=== PATIENT | male | born 1965 | race Caucasian/White ===

== ENCOUNTER → 2018-11-05 10:21 | Outpatient (CLI) | payer MEDICARE, SELFPAY ==
--- NOTE | 2018-11-05 10:29 | XR_ITS ---
EXAM: XR cervical spine 5V HISTORY: ITS.REASON: NECK PAIN ORDERING PHYSICIAN: Nancy Barrios MD PATIENT AGE: 53 years COMPARISON: None FINDINGS: There is slight reversal of the cervical lordosis. Degenerative disc disease is present at C5-C6 and C6-C7. Foraminal narrowing is noted on the right at C3-C4 and C5-C6 and on the left at C4-C5 and C5-C6. There are facet arthritic/hypertrophic changes from C3 to C7. No lytic or blastic change. No cervical rib. IMPRESSION: Cervical spondylosis with degenerative disc disease and facet arthritic change with foraminal narrowing as detailed above
--- NOTE | 2018-11-05 10:29 | XR_ITS ---
EXAM: XR lumbar spine min 4V HISTORY: ITS.REASON: LUMBAGO W/SCIATICA,CHRONIC PAIN ORDERING PHYSICIAN: Nancy Barrios MD PATIENT AGE: 53 years COMPARISON: None FINDINGS: There is minimal lumbar curvature convex right. Degenerative disc disease is present at L4-L5 and to a greater degree at L5-S1. There are facet arthritic changes at L5-S1. No fracture or dislocation. No lytic or blastic change. IMPRESSION: Lumbar spondylosis with degenerative disc disease at L4-L5 and facet arthritic change at L5-S1
== END ==
PROVIDERS: PCP Emergency Medicine; Visit Provider Emergency Medicine
DX: M54.41 Lumbago with sciatica, right side (principal); M54.42 Lumbago with sciatica, left side; G89.29 Other chronic pain
CPT/HCPCS: 72050; 72110

== ENCOUNTER → 2019-02-02 17:36 | Outpatient (CLI) | payer MEDICARE, SELFPAY ==
[2019-02-02 18:14] LABS: Basophils % 0.9 % (0.1-2.0); Eosinophils # 0.1 K/mm3 (0.0-0.4); Eosinophils % 2.6 % (0.1-12.0); Hematocrit 45.2 % (42.0-52.0); Hemoglobin 15.5 g/dL (14.1-18.0); Lymphocytes # 2.1 K/mm3 (0.7-4.5); Lymphocytes % 39.3 % (10-50); Mean Corpuscular HGB Conc 34.3 g/dL (31.8-35.4); Mean Corpuscular Hemoglobin 30.2 pg (27.0-31.2); Mean Corpuscular Volume 88.3 fl (80-94); Mean Platelet Volume 8.4 fl (7.4-10.4); Monocytes # 0.3 K/mm3 (0.1-1.0); Monocytes % 5.8 % (1.7-9.3); Neutrophils # 2.7 K/mm3 (1.8-7.8); Neutrophils % 51.4 % (37.0-80.0); Platelet Count 203 K/mm3 (142-424); Red Blood Count 5.12 M/mm3 (4.60-6.20); Red Cell Distribution Width 13.2 % (11.5-17.5); White Blood Count 5.2 K/mm3 (4.8-10.8)
[2019-02-02 18:18] LABS: Alanine Aminotransferase 24 U/L (12-78); Albumin Level 4.4 gm/dL (3.4-5.0); Albumin/Globulin Ratio 1.4 (1.1-1.8); Alkaline Phosphatase 61 U/L (46-116); Aspartate Amino Transferase 15 U/L (15-37); Bilirubin,Total 0.4 mg/dL (0.2-1.0); Blood Urea Nitrogen 13 mg/dL (7-18); Calcium 9.2 mg/dL (8.5-10.1); Carbon Dioxide 26 mmol/L (21.0-32.0); Chloride 103 mmol/L (98-107); Chol/HDL Ratio 6.1 (1-3.5); Cholesterol 273 mg/dL (140-200); Creatinine,Serum 0.98 mg/dL (0.70-1.30); Estimated Glomerular Filt Rate 79 ml/min (>60); GFR (African American) 96 ML/MIN (>60); Globulin 3.2 gm/dl (1.3-3.2); Glucose 96 mg/dL (74-106); HDL Cholesterol 45 mg/dL (27-67); LDL Cholesterol 194 mg/dL (0-130); Sodium 138 mmol/L (136-145); Thyroid Stimulating Hormone 1.13 uIU/ml (0.358-3.740); Total Protein,Serum 7.6 gm/dL (6.4-8.2); Triglycerides 172 mg/dL (30-200); VLDL Cholesterol 34 mg/dL (0-40)
== END ==
PROVIDERS: Visit Provider Physician Assistant
DX: R53.83 Other fatigue (principal); I25.10 Atherosclerotic heart disease of native coronary artery without angina pectoris
CPT/HCPCS: 80053; 80061; 82652; 84436; 84443; 85025

== ENCOUNTER → 2019-05-06 14:32 | Outpatient (CLI) | payer MEDICARE, SELFPAY ==
[2019-05-06 15:19] LABS: Monoscreen (Rapid) Negative (Negative)
[2019-05-06 16:10] LABS: Basophils # 0.1 K/mm3 (0-0.2); Basophils % 1.1 % (0.1-2.0); Eosinophils # 0.2 K/mm3 (0.0-0.4); Hematocrit 47.5 % (42.0-52.0); Hemoglobin 15.7 g/dL (14.1-18.0); Lymphocytes % 33.8 % (10-50); Mean Corpuscular HGB Conc 33.1 g/dL (31.8-35.4); Mean Corpuscular Hemoglobin 29.9 pg (27.0-31.2); Mean Corpuscular Volume 90.5 fl (80-94); Mean Platelet Volume 9.3 fl (7.4-10.4); Monocytes # 0.4 K/mm3 (0.1-1.0); Monocytes % 6.8 % (1.7-9.3); Neutrophils # 3.2 K/mm3 (1.8-7.8); Neutrophils % 55.4 % (37.0-80.0); Platelet Count 194 K/mm3 (142-424); Red Blood Count 5.25 M/mm3 (4.60-6.20); Red Cell Distribution Width 13.2 % (11.5-17.5); White Blood Count 5.8 K/mm3 (4.8-10.8)
[2019-05-06 16:41] LABS: Alanine Aminotransferase 29 U/L (12-78); Albumin Level 4.1 gm/dL (3.4-5.0); Albumin/Globulin Ratio 1.3 (1.1-1.8); Alkaline Phosphatase 67 U/L (46-116); Aspartate Amino Transferase 14 U/L (15-37); Bilirubin,Total 0.4 mg/dL (0.2-1.0); Blood Urea Nitrogen 9 mg/dL (7-18); Calcium 8.6 mg/dL (8.5-10.1); Carbon Dioxide 24 mmol/L (21.0-32.0); Chloride 103 mmol/L (98-107); Chol/HDL Ratio 4.6 (1-3.5); Cholesterol 222 mg/dL (140-200); Creatinine,Serum 0.87 mg/dL (0.70-1.30); Estimated Glomerular Filt Rate 91 ml/min (>60); GFR (African American) 110 ML/MIN (>60); Globulin 3.2 gm/dl (1.3-3.2); Glucose 91 mg/dL (74-106); HDL Cholesterol 48 mg/dL (27-67); LDL Cholesterol 141 mg/dL (0-130); Sodium 140 mmol/L (136-145); T4 (Thyroxine) 10.7 ug/dl (4.7-13.3); Thyroid Stimulating Hormone 1.47 uIU/ml (0.358-3.740); Total Protein,Serum 7.3 gm/dL (6.4-8.2); Triglycerides 163 mg/dL (30-200); VLDL Cholesterol 33 mg/dL (0-40)
== END ==
PROVIDERS: Visit Provider Physician Assistant
DX: R53.83 Other fatigue (principal); E78.5 Hyperlipidemia, unspecified
CPT/HCPCS: 80053; 80061; 84436; 84443; 85025; 86318

== ENCOUNTER → 2019-05-18 12:51 | Outpatient (CLI) | payer MEDICARE, SELFPAY ==
--- NOTE | 2019-05-18 12:52 | MR_ITS ---
PROCEDURE: MR CERVICAL SPINE WO CON CLINICAL INDICATION: Chronic neck pain COMPARISON: No exams were available for comparison TECHNIQUE: Standard multiplanar multiecho sequences are performed without contrast. 3-D MIP and myelographic images are also rendered and reviewed FINDINGS: Alignment, vertebral body heights and signal from the osseous marrow elements are normal. There is moderate loss of disc space height at C5-6 and C6-7. Foramen magnum and the C1-2 level and C2-3 appear normal. C3-4 shows diffuse bulge/spur with mild ventral cord deformity. Vertebral canal AP diameter is 9.1 centimeters. There is right facet and uncovertebral joint hypertrophy with moderate to severe foraminal stenosis. C4-5 shows no bulge or herniation. Foraminal areas are patent. C5-6 shows bulge/posterior spur greater towards the left side with mild ventral cord deformity. Canal AP diameter is 9.1 millimeters. There is uncovertebral joint hypertrophy causing foraminal encroachment bilaterally, mild on the right and moderate to severe on the left. C6-7 shows diffuse bulge/spur with minimal ventral cord deformity. Canal AP diameter is 8.4 millimeters. There is uncovertebral joint hypertrophy causing moderate bilateral foraminal stenosis. C7-T1 level shows diffuse mild bulge/spur without cord deformity. There is facet and uncovertebral joint hypertrophy causing moderate to severe bilateral foraminal stenosis. Spinal cord is of normal signal. Visualized paraspinal structures are unremarkable. IMPRESSION: Multiple levels of degenerative disc disease with bulges/posterior spurs with areas of generally mild acquired central canal stenosis at C3 through C7 levels discussed above in the bulge is slightly more prominent at C6-7. Multiple levels of foraminal spondylosis discussed above, appears to be more prominent on the right at C3-4 and bilaterally at C5-6, C6-7 and C7-T1. To better evaluate for osseous foraminal stenosis suggest five view cervical spine plain film exam. Dictated by: Rohit Mares 05/18/2019 16:53 Electronically signed by Rohit Mares in [facility] 05/18/2019 16:53
--- NOTE | 2019-05-18 12:52 | MR_ITS ---
PROCEDURE: MR LUMBAR SPINE WO CON CLINICAL INDICATION: Chronic back pain COMPARISON: No exams were available for comparison TECHNIQUE: Standard multiplanar multiecho sequences are performed without contrast. 3-D MIP and myelographic images are also rendered and reviewed FINDINGS: Alignment, vertebral body heights and signal from the osseous marrow elements are normal. There is moderate loss of disc space height at multiple lower thoracic levels and severe loss of disc space height at L5-S1. T11-12 shows mild bulge greater towards the right with borderline mild right ventral cord deformity however there is subarachnoid space between the cord and the bulge. There is right facet hypertrophy. T12-L1 shows minimal bulge without mass effect. Foraminal areas appear normal. L1-2 shows mild bulge without mass effect. Foraminal areas are normal. L2-3 shows mild bulge without mass effect and foraminal areas are normal. L3-4 shows mild bulge without mass effect. Foraminal areas are normal. L4-5 shows minimal bulge greater towards the left with mild left ventral thecal sac deformity without central stenosis. There is mild encroachment upon the left foramina without foraminal nerve root mass effect. L5-S1 shows minimal bulge without mass effect. There is moderate right facet hypertrophy there is [id number] bilateral foraminal stenosis and the hypertrophic facet is adjacent to the left L5 nerve root in the foramina. Multiple levels of facet arthrosis which is fairly mild although somewhat greater on the right at L5-S1. Conus and cauda equina structures and paraspinal structures are normal. IMPRESSION: Multiple levels of chronic intervertebral osteochondrosis with mild bulges at multiple levels however there is no acquired central canal stenosis or focal disc herniation. Areas of foraminal stenosis primarily from the mild bulge and facet arthrosis however there is no definite foraminal nerve root deformity except there could be some subtle mass effect upon the left L5 nerve root in the foramina. Correlate with distribution symptoms. Dictated by: Rohit Mares 05/18/2019 17:03 Electronically signed by Rohit Mares in [facility] 05/18/2019 17:03
== END ==
PROVIDERS: PCP Physician Assistant; Visit Provider Physician Assistant
DX: G89.29 Other chronic pain (principal); M54.2 Cervicalgia; M54.9 Dorsalgia, unspecified
CPT/HCPCS: 72141; 72148; 76376

== ENCOUNTER → 2019-06-26 14:49 | Outpatient (CLI) | payer MEDICARE, SELFPAY ==
--- NOTE | 2019-06-26 14:50 | MR_ITS ---
PROCEDURE: MR THORACIC SPINE WO CON CLINICAL INDICATION: Thoracic back pain COMPARISON: MR CERVICAL SPINE WO CON from 05/18/2019 MR LUMBAR SPINE WO CON from 05/18/2019 XR CHEST 2V from 06/04/2019 TECHNIQUE: Routine multiplanar multi echo sequences are performed without gadolinium enhancement. FINDINGS: There is normal alignment. No acute fracture or dislocation is evident. There is mild multilevel degenerative disc disease. There are degenerative changes in the lower cervical spine with degenerative disc disease and bulging disc at C5-C6 C6-C7 and C7-T1. Disc osteophyte complex is present on the left at C7-T1 causing left-sided lateral recess and foraminal narrowing. The T1-T2: Minimal bulging disc. T2-T3: Unremarkable. T3-T4: Degenerative disc disease with minimal bulging disc which is eccentric toward the right with mild right lateral recess narrowing and mild right foraminal narrowing. T4-T5: Unremarkable. T5-T6: Unremarkable. T6-T7: Unremarkable. C7-T1: Degenerate disc disease with minimal bulging disc T8-T9: Mild degenerative disc disease. There is mild right paracentral disc protrusion. There is right-sided lateral recess and foraminal narrowing. T9-T10: Degenerate disc disease with small right paracentral/foraminal disc protrusion along with facet ligamentum hypertrophy with severe right-sided foraminal narrowing and mild right lateral recess narrowing. T10-T11: There is mild loss of height anteriorly at T10 and T11 which appears chronic. There is moderate right-sided facet and ligamentum hypertrophy with moderate right lateral recess and foraminal narrowing. T11-T12: Degenerate disc disease with right-sided foraminal narrowing. T12-L1: 3 mm retrolisthesis of T12 with degenerative disc disease. Mild chronic wedging of T12. Incidental note is made of a 1.3 cm cyst in the spleen and a 1 cm cyst of the right kidney IMPRESSION: 1. Abnormal MRI of the thoracic spine with multilevel degenerative disc disease with bulging disc and disc protrusions. There is resultant lateral recess and foraminal narrowing. Please see above for detailed description at each level. 2. Mild loss of height anteriorly at T 10 T11 and T12 which appears chronic Dictated by: Tim Dodge MD 06/29/2019 09:25 Electronically signed by Tim Dodge MD in [facility] 06/29/2019 09:25
== END ==
PROVIDERS: PCP Physician Assistant; Visit Provider Physician Assistant
DX: M54.6 Pain in thoracic spine (principal)
CPT/HCPCS: 72146

== ENCOUNTER → 2019-09-08 07:57 | Outpatient (CLI) | payer MEDICARE, SELFPAY ==
--- NOTE | 2019-09-08 07:58 | CA_ITS ---
APPROVED REPORT EXAM: Comprehensive 2D, Doppler, and color-flow Echocardiogram Refrigeration Installer: Telma Shetty RT(R) Ht: 5 ft 7 in Wt: 164lbs BSA: 1.86 BP: 157/101 mmHg Indications: HTN, CP, smoker, hyperlipidemia, possible TIA 2D Dimensions LVOT 1.75 cm (M/F) 1.5-2.5 M-Mode Dimensions RVDd 2.25 cm (0.9-2.6) LVDd 4.39 cm (3.5-5.7) LVDs 3.09 cm (3.5-5.7) IVSd 0.94 cm (0.6-1.1) PWd 1.01 cm (0.6-1.1) EF (Teich) 56.90% FS 29.60% EDV (Teich) 87.20 mL ESV (Teich) 37.60 mL LV Diastology E/A Ratio 1.06 Mitral Valve MV A Velocity 60.00 (40-130 cm/s) Left Ventricle Left atrium is mildly enlarged, left ventricle is normal size, mild concentric left ventricular hypertrophy, visually estimated ejection fraction 55% with no regional wall motion abnormality, grade 1 diastolic dysfunction seen without tissue Doppler evidence of raise left atrial pressure. Right Ventricle Right atrium right ventricular normal size and contractility. Aortic Valve Aortic valve is minimally thickened and fibrosed, there is no aortic stenosis aortic insufficiency. Mitral Valve Mitral valve is grossly normal, there is mild mitral regurgitation. Tricuspid Valve Tricuspid valve is grossly normal, there is mild tricuspid regurgitation. Pulmonic Valve Pulmonic valve is poorly visualized. Great Vessels Aortic root is normal size. Pericardium No significant pericardial effusion noted. Conclusion 1. Mildly enlarged left atrium, normal left ventricular size, mild concentric left ventricular hypertrophy, visually estimated ejection fraction 55% with no regional wall motion abnormality, grade 1 diastolic dysfunction seen without tissue Doppler evidence of raise left atrial pressure. 2. Mild mitral and tricuspid regurgitation. 3. No significant pericardial effusion noted. Electronically signed by : Mitesh Quintero, 09/08/2019 17:48:05
--- NOTE | 2019-09-08 07:58 | CA_ITS ---
APPROVED REPORT Affiliate Manager: CT Laterality: Bilateral Study Quality: Good Indications: TIA, HTN Risk Factors Hypertension: Doppler Spectral Velocity Analysis ECA (R) 79.30/18.00 cm/s ECA (L) 65.60/14.60 cm/s dICA (R) 75.80/37.30 cm/s dICA (L) 68.50/34.30 cm/s Patricia (R) 87.30/41.70 cm/s Patrciia (L) 80.90/37.20 cm/s pICA (R) 63.10/26.20 cm/s pICA (L) 62.90/28.30 cm/s dCCA (R) 79.60/25.00 cm/s dCCA (L) 86.00/27.70 cm/s pCCA (R) 80.50/24.00 cm/s pCCA (L) 80.80/23.90 cm/s Vert (R) 53.90/26.30 cm/s Vert (L) 52.40/22.40 cm/s ICA/CCA 1.10 ICA/CCA 1.00 Conclusion Duplex evaluation demonstrates stenosis of the right proximal internal carotid artery <20% with PSV <140 cm/sec, EDV <100 cm/sec, and IC/CC Ratio <4.0. Duplex evaluation demonstrates stenosis of the left proximal internal carotid artery <20% with PSV <140 cm/sec, EDV <100 cm/sec, and IC/CC Ratio <4.0. Duplex evaluation demonstrates antegrade flow of the bilateral Vertebral Arteries. Electronically signed by : Tim Dodge MD 09/08/2019 20:19:50
== END ==
PROVIDERS: PCP Physician Assistant; Visit Provider Specialist
DX: G45.9 Transient cerebral ischemic attack, unspecified (principal); H53.9 Unspecified visual disturbance; R07.9 Chest pain, unspecified; R42 Dizziness and giddiness
CPT/HCPCS: 93225; 93226; 93306; 93880

== ENCOUNTER → 2019-10-21 07:45 | Outpatient (CLI) | payer MEDICARE, SELFPAY ==
--- NOTE | 2019-10-21 | CA_ITS ---
APPROVED REPORT Exam: Pharmacologic Technologist: Nathalie Castro Ht: 5 ft 7 in Wt: 170 lbs BSA: 1.89 m2 HR: 53 bpm BP: 139/94 mmHg Indications: Chest pain, abnormal ekg Medical History Medications: Lisinopril,,,,, Aspirin,,,,, Simvastatin,,,,, DulOXETINE,,,,, BisOPROLOL,,,,, FluTICASONE,,,,, Cyclobenzaprine,,,,, Vitamin B1,,,,, AcYCLOVir,,,,, Stress Test Details Test: LEXISCAN HR Resting HR: 57 bpm Max Heart Rate (APMHR): 164 bpm Max HR Achieved: 76 bpm Target HR (85% APMHR): 139 bpm % of APMHR: 46 Recovery HR: 60 bpm BP Resting BP: 139.0/94.0 mmHg Max BP: 139.0/94.0 mmHg Recovery BP: 133.0/88.0 mmHg ECG Clinical Exercise duration: 04:05 min Highest Stage Achieved: Stress ECG Conclusion Resting ECG: Sinus bradycardia, right axis deviation, inferior T wave inversion. Symptoms: Shortness of air, mild stomach discomfort, malaise. No chest pain. Arrhythmias/Ectopy: None ST-T Changes: No significant changes. Conclusion: Non-diagnostic Lexiscan stress. Myoview images reported separately. Electronically signed by : Mitesh Quintero, 10/22/2019 09:38:33
--- NOTE | 2019-10-21 07:45 | NM_ITS ---
APPROVED REPORT Exam: Nuclear Stress Test Indication: Chest pain, Abnormal EKG, HTN, High cholesterol, Tobacco use Patient Location: Outpatient Stress Tech: Nathalie Castro NM Tech:Ashley Shipman, ARRT, RT (R)(N) Ht: 5 ft 7 in Wt: 170 lbs HR: 53 bpm BP: 139/94 mmHg BSA: 1.89 m2 BMI: 26.6 History: Chest pain, Abnormal EKG, HTN, High cholesterol, Tobacco use Procedure: Patient received a 0.4 mg of intravenous Lexiscan, resting heart rate 53 bpm, resting blood pressure 139/94 mmHg, with Lexiscan maximum heart rate achived was 62 bpm which is Less than 85 % of the maximum predicted heart rate and blood pressure was 133/94 mmHg. With Lexiscan, patient denied any complaint of chest pain. Electrocardiogram Resting electrocardiogram showed sinus rhythm, with Lexiscan there is less than 1.[address] segment depression noted from the baseline EKG. The EKG portion of the Lexiscan Myoview is nondiagnostic. Cardiac Stress and Resting SPECT Images: Cardiac Stress and Resting SPECT images were obtained using technetium 99m Myoview 31.1 mCi stress and 10.06 mCi at rest. Gated SPECT with analysis of segmental wall motion and calculation of the ejection fraction also done. Cardiac stress and resting SPECT images show a mild fixed defect in the anterior apical and anteroseptal wall with normal contracted gated SPECT is likely secondary to soft tissue attenuation, no reversible ischemia seen. Computer derived ejection fraction is 59% with no regional wall motion abnormality, right ventricle is normal size and contractility. Conclusion: 1. The EKG portion of the Lexiscan Myoview is nondiagnostic. 2. No scintigraphic evidence of reversible ischemia seen, computer derived ejection fraction is 59% with no regional wall motion abnormality, right ventricle is normal size and contractility. 3. Likely normal Lexiscan Myoview study. Electronically signed by : Mitesh Quintero, 10/22/2019 09:41:51
== END ==
PROVIDERS: PCP Physician Assistant; Visit Provider Nurse Practitioner Family
DX: F17.200 Nicotine dependence, unspecified, uncomplicated (principal); I10 Essential (primary) hypertension; R07.9 Chest pain, unspecified; R53.83 Other fatigue; G47.33 Obstructive sleep apnea (adult) (pediatric); R94.31 Abnormal electrocardiogram [ECG] [EKG]; R40.0 Somnolence
CPT/HCPCS: 78452; 93017; A9502; G0399; J2785

== ENCOUNTER → 2019-11-26 10:06 | Outpatient (POV) | payer MEDICARE, SELFPAY ==
[2019-11-26 10:37] VITALS: BP 158/92; PULSE 69; RESP 18; TEMP 36.8; O2SAT 99; BMI 33.9
--- NOTE | 2019-11-26 13:21 | HMH.PMCON ---
Assessment and Plan (1) Degenerative joint disease of cervical spine Current visit: Yes Status: Chronic Category: Medical Code(s): M47.812 - Spondylosis without myelopathy or radiculopathy, cervical region (2) Cervical radiculopathy Current visit: Yes Status: Chronic Category: Medical Code(s): M54.12 - Radiculopathy, cervical region (3) Degenerative joint disease (DJD) of lumbar spine Current visit: Yes Status: Chronic Category: Medical Code(s): M47.816 - Spondylosis without myelopathy or radiculopathy, lumbar region (4) Lumbar radiculopathy Current visit: Yes Status: Chronic Category: Medical Code(s): M54.16 - Radiculopathy, lumbar region - Assessment and plan all Dx Assessment and Plan for all problems:: The patient's pain is primarily in his neck at this time. We will plan for a cervical epidural steroid injection at C6-C7. He is not on any anticoagulation therapy. We will plan to see him back in the clinic after his injection to reassess his symptoms. The patient has been instructed to contact clinic if he has any concerns before his next appointment. He will continue with anti-inflammatories and a home stretching program. The patient and I specifically discussed risk factors for COVID19. These risks include, but are not limited to age greater than 60, heart or lung disease, diabetes, immunosuppression, and travel. We also discussed NSAIDs may worsen COVID19 infection or symptoms. Patient should not use NSAIDs to treat COVID19 signs or symptoms. Patient was also informed that any type of corticosteroid of any form (oral or injection) will decrease the patient's immune system response and may increase the likelihood of COVID19 infection [address] symptoms[address]. Bo has reviewed this note and agrees with this plan of care. This note was dictated using voice recognition software and make contain errors or omissions. HPI - Data of Consult Patient: new to practice Consult date: 11/26/19 Requesting Physician: Ana Lord APRN Primary Care Provider: TYESHA Saravia - Consult Narrative Reason for consult: Neck and low back pain History of present illness: Mr. Youssef is a 54 year old male presents today for consultation for neck and low back pain. The patient says he has relocated from [place] and was seen by a clinic in his previous area for neck and low back pain. The patient has undergone cervical and lumbar epidural steroid injections in the past and is gotten approximately 90% relief. He does report to have had the pain for many years. Patient is reporting to have numbness and tingling as well as pain on the left side of his body. He says that it does start in his facial area and radiates into his left arm, left low back, and left leg. He says that he has had an extensive work-up from neurology and cardiology. Today, he says his work-up has been unremarkable. Patient says he has numbness and tingling in the left side of his face with changes in his left eye. He also says that the pain does radiate into his left arm and left hand causing numbness and tingling. He does have neck and low back pain. The low back pain causes radiation into his left leg with numbness and tingling. The patient does have worsening pain in his neck today. He has tried physical therapy in the past which has given him some relief. He does say that massage therapy has given him the most relief along with the steroid epidural injections. Patient would like to proceed with a cervical epidural steroid injection and possible lumbar epidural steroid injection in the future. His pain is primarily in his neck today. He does have intermittent low back pain. He says that the injections generally give him up to 2 to 3 weeks of relief. He has undergone a series of injections for his neck which have given him long-term relief. That the patient and I did discuss today possible implanted devices in the event the inject
== END ==
PROVIDERS: PCP Physician Assistant; Visit Provider Clinical Nurse Specialist Family Health
DX: M47.22 Other spondylosis with radiculopathy, cervical region; M47.26 Other spondylosis with radiculopathy, lumbar region
CPT/HCPCS: 99202

== ENCOUNTER 2019-12-01 09:01 | Outpatient (RCR) | payer MEDICARE, SELFPAY ==
--- NOTE | 2019-12-01 12:00 | HMH.PTOPEV ---
PT Outpatient Evaluation Rehab PT Outpatient Evaluation Start: 12/01/19 09:08 Freq: Status: Active Protocol: Document 12/01/19 10:03 JOESPH (Rec: 12/01/19 10:06 JOESPH [id number]) Electronically Signed By Ramon Garrett, PT 12/01/19 10:03 Outpatient Therapy Subjective History Subjective History Patient is a 54 year old male presenting to outpatient PT with reports of chronic cervical and lumbar spine pain with LUE and LLE radicular symptoms starting approximately 32 years ago that have progressivley gotten worse. Symptoms insidious in nature per patient report. Most recent imaging indicates both cervical and lumbar spine stenosis/spondylosis/disc bulges. Pt reports LUE/LLE radicular symptoms to both hand and foot. Comorbidities include hx of hiatal hernia/sx , HTN and HL. Chief Complaint Pain,Stiff,Paresthesia, Weakness Symptom Type Ache,Sharp,Numbness,Tingling Symptoms Relieved By Rest/Positioning,Prescription Meds Symptoms Aggravated By Standing,Physical Activity, Walking,Lifting Prior Functional Limitations Reaching,Lifting,Housework, Standing,Squatting,Recreation Activity,Walking,Bending/ Stooping Current Functional Limitations Reaching,Lifting,Housework, Standing,Squatting,Recreation Activity,Walking,Bending/ Stooping Symptom Description Constant but Variable Level of pain today (0-10) 9 Pain scale - at its best (0-10) 5 Pain scale - at its worst (0-10) 9 Cervical Eval Palpation Cervical Muscles L Cervical Paraspinal,L Suboccipital,L CT Junction,L Upper Trapezius Cervical/Thoracic Palpation Findings Tenderness Posture Head/C-Spine Posture Sitting Position Neutral Position Head/C-Spine Posture Standing Position Neutral Position Flexibility Deficits Upper Trapezius Muscle Length (R) Mild Tightness,(L) Mild Tightness Levaetor Scapulae Muscle Length (R) Mild Tightness,(L) Mild Tightness Pectoralis Minor Muscle Length (R) Mild Tig
== END 2019-12-01 09:05 | disposition home or self-care (01) ==
LOC: PT 09:01
PROVIDERS: PCP Physician Assistant; Visit Provider Specialist
DX: M54.2 Cervicalgia (principal); M54.5 Low back pain
CPT/HCPCS: 97010; 97014; 97163; G0283